=== PATIENT | male | born 1980 | race Caucasian/White ===

== ENCOUNTER 2018-10-07 00:21 | Emergency (ER) | payer BC ==
[2018-10-07] MEDS: SOD CHLORIDE 0.9% 1,000 ML IV ×2 (04:37→08:06)
[2018-10-07 05:24] LABS: ADD MAN DIFF? NO
[2018-10-07 05:28] LABS: BASOPHIL # 0.1 10^3/ul (0.0-0.1); EOSINOPHILS # 0.2 10^3/ul (0.0-0.5); EOSINOPHILS % 3.4 % (0.0-7.0); HEMATOCRIT 37.5 % (42.0-52.0); HEMOGLOBIN 12.8 g/dl (14.0-18.0); LYMPHOCYTES # 1.7 10^3/ul (0.8-2.9); LYMPHOCYTES % 34.3 % (15.0-51.0); MEAN CORPUSCULAR HEMOGLOBIN 29.6 pg (29.0-33.0); MEAN CORPUSCULAR HGB CONC 34.1 g/dl (32.0-37.0); MEAN CORPUSCULAR VOLUME 86.6 fl (82.0-101.0); MEAN PLATELET VOLUME 9.5 fl (7.4-10.4); MONOCYTE # 0.7 10^3/ul (0.3-0.9); MONOCYTES % 13.5 % (0.0-11.0); NEUTROPHIL # 2.4 10^3/ul (1.6-7.5); NEUTROPHILS % 47.4 % (39.0-77.0); PLATELET COUNT 175 10^3/UL (140-415); RED BLOOD COUNT 4.33 10^6/ul (4.70-6.10); RED CELL DISTRIBUTION WIDTH 12.7 % (11.5-14.5)
[2018-10-07 05:45] LABS: ALANINE AMINOTRANSFERASE 82 IU/L (13-69); ALBUMIN 4.1 g/dl (3.3-4.9); ALBUMIN/GLOBULIN RATIO 1.17; ALKALINE PHOSPHATASE 91 IU/L (42-121); ANION GAP 7 (5-13); ASPARTATE AMINO TRANSFERASE 73 IU/L (15-46); BILIRUBIN,INDIRECT 0.8 mg/dl (0-1.1); BILIRUBIN,TOTAL 0.8 mg/dl (0.2-1.3); BLOOD UREA NITROGEN 11 mg/dl (7-20); CALCIUM 9.1 mg/dl (8.4-10.2); CARBON DIOXIDE 33 mmol/L (21-31); CHLORIDE 101 mmol/L (97-110); CREATININE 1.04 mg/dl (0.61-1.24); Estimated GFR > 60 mL/min (>60); GLUCOSE 92 mg/dl (70-220); POTASSIUM 4.3 mmol/L (3.5-5.1); SODIUM 141 mmol/L (135-144); TOTAL PROTEIN 7.6 g/dl (6.1-8.1)
[2018-10-07 05:48] LABS: ETHANOL < 10.0 mg/dl (0-0)
[2018-10-07 05:56] LABS: B-TYPE NATRIURETIC PEPTIDE 105 PG/ML (0-125); TROPONIN-I < 0.012 ng/ml (0.000-0.120)
[2018-10-07 06:14] LABS: ACETAMINOPHEN < 10.0 ug/ml (10.0-30.0); SALICYLATE < 1.0 mg/dl (5.0-30.0)
[2018-10-07] MEDS ORDERED: ONDANSETRON 4 MG INJ IV (06:30)
[2018-10-07] MEDS ORDERED: NITROGLYCERIN (SL) 0.4 MG TAB SL (06:30)
[2018-10-07] MEDS ORDERED: BISACODYL (EC) 5 MG TAB PO (06:30)
[2018-10-07] MEDS ORDERED: ACETAMINOPHEN 325 MG TAB PO (06:30)
[2018-10-07] MEDS ORDERED: NACL 0.9% 3 ML SYG IV (06:30)
[2018-10-07] MEDS ORDERED: DOCUSATE SODIUM 100 MG CAP PO (06:30)
[2018-10-07 06:59] LABS: MAGNESIUM 1.9 mg/dl (1.7-2.5)
[2018-10-07] MEDS: SOD CHLORIDE 0.9% 500 ML IV (08:05)
[2018-10-07] MEDS: MAGNESIUM SULFATE 1 GM/D5W 100 ML IVPB (08:06)
[2018-10-07] MEDS: NICOTINE (21 MG/24 HR) PATCH TRANSDERM (09:29)
[2018-10-07 11:40] LABS: ADD UMIC NO; UR ASCORBIC ACID NEGATIVE (NEGATIVE); UR BILIRUBIN (Dip) NEGATIVE (NEGATIVE); UR BLOOD (Dip) NEGATIVE (NEGATIVE); UR CLARITY CLEAR (CLEAR); UR COLOR YELLOW (YELLOW); UR GLUCOSE (Dip) NEGATIVE (NEGATIVE); UR KETONES (Dip) NEGATIVE (NEGATIVE); UR LEUKOCYTE ESTERASE (Dip) NEGATIVE Leu/ul (NEGATIVE); UR NITRITE (Dip) NEGATIVE (NEGATIVE); UR SPECIFIC GRAVITY (Dip) 1.006 (1.003-1.030); UR TOTAL PROTEIN (Dip) NEGATIVE (NEGATIVE); UR UROBILINOGEN (Dip) NEGATIVE (NEGATIVE)
[2018-10-07 12:56] LABS: AMPHETAMINE/METHAMPHETAMINE NEGATIVE (NEGATIVE); BARBITURATES NEGATIVE (NEGATIVE); BENZODIAZEPINES POSITIVE (NEGATIVE); CANNABINOIDS NEGATIVE (NEGATIVE); COCAINE NEGATIVE (NEGATIVE); OPIATES NEGATIVE (NEGATIVE)
== END 2018-10-07 12:25 | disposition left against medical advice (07) ==
LOC: E/R 00:21
DX: I95.9 Hypotension, unspecified (principal); R40.2142 Coma scale, eyes open, spontaneous, at arrival to emergency department; R40.2362 Coma scale, best motor response, obeys commands, at arrival to emergency department; R40.2252 Coma scale, best verbal response, oriented, at arrival to emergency department
CPT/HCPCS: 36415; 71045; 80053; 80307; 81003; 83735; 83880; 84443; 84484; 85025; 93005; 93306; 93880; 96374; 99285-25